=== PATIENT | female | born 1960 | race Caucasian/White ===

== ENCOUNTER → 2021-11-18 10:49 | Outpatient (CLI) | payer OTHER, SELFPAY ==
--- NOTE | 2021-11-18 10:52 | DI.MRI.S_ITS ---
PROCEDURE: MR HEAD/BRAIN WO/W CON INDICATIONS: MENINGIOMA TECHNIQUE: Noncontrast axial T1 spin echo, axial T2 fast spin echo, sagittal and axial FLAIR, coronal T2 fast spin echo, axial gradient echo, axial diffusion and ADC through the brain. After the administration of contrast, axial and coronal and sagittal 3D VIBE or T1 spin echo with fat saturation through the brain. COMPARISON: [facility], RG, MRI BRAIN W/WO CONTRAST, 08/24/2021, 14:02. FINDINGS: Image quality: Excellent. CSF Spaces: Basal cisterns are patent. No extra-axial fluid collections. Ventricles are normal in size and shape. Brain: There is an extra-axial mass again seen involving the right frontal region that measures up to 5 mm, as on series 13 image 114. This is not significantly changed compared to the prior examination, when measured in a similar fashion. No midline shift. The brainstem appears normal. Diffusion-weighted images demonstrate no acute ischemic insults. No chronic ischemic insults. Normal intravascular flow voids are present. Skull and face: Calvarial marrow is normal in signal. Orbits appear normal. Sinuses: Sinuses and mastoids appear clear. IMPRESSION: Stable meningioma until proven otherwise. Dictated by: Yariel Us M.D. on 11/21/2021 at 14:01 Approved by: Yariel Us M.D. on 11/21/2021 at 14:02
== END ==
LOC: MRI 10:51
PROVIDERS: PCP Physician Assistant; Referring Provider Psychiatry & Neurology Neurology; Visit Provider Psychiatry & Neurology Neurology
DX: D32.0 Benign neoplasm of cerebral meninges (principal)
CPT/HCPCS: 70553; A9579

== ENCOUNTER → 2023-02-14 13:45 | Outpatient (CLI) | payer OTHER, SELFPAY ==
--- NOTE | 2023-02-14 | DI.NM.S_ITS ---
PROCEDURE: NM EXERCISE TREADMILL NON NUC COMPARISON: None INDICATIONS: Dyspnea on exertion, palpitations, tachycardia FINDINGS: Rest ECG sinus rhythm. Wilfredo protocol 7:12, maximum heart rate 170 bpm (106% peak predicted), maximum blood pressure 182/80, 10.1 METS, FER -5%. Exercise ECG sinus tachycardia, no ST segment changes or arrhythmias. The patient did not complain of exercise-induced chest discomfort. IMPRESSION: Low risk study. No evidence of exercise-induced ischemia or arrhythmia. Normal hemodynamic response. Good exercise capacity. Dictated by: Hoda Bray D.O. on 02/14/2023 at 16:56 Approved by: Hoda Bray D.O. on 02/14/2023 at 16:59
--- NOTE | 2023-02-14 14:19 | DI.ECHO.S_ITS ---
[facility]---------+ [facility] +---------+ : : [address] : : : : [id number] : : : : Phone: [phone]+ Echocardiogram Report + + :Name: CHELITA COSME Study Date: 02/14/2023 Height: 65 in : :[facility] ReadingLocation: Weight: 185 lb : : Gender: Female BSA: 1.9 m2 : :: 1960 Age: 62 yrs BP: 113/79 mmHg: :Reason For Study: DYSPNEA : :Ordering Physician: TOSIN, : :DARRIAN Performed By: Daria Amos : :Referring: DARRIAN SHARMA : + + Interpretation Summary 1) Normal left ventricular thickness and size with low normal systolic function (EF 50-55%). 2) Normal right ventricular size and function. 3) No significant valvular abnormalities. 4) No prior Echo available for comparison. Procedure: A two-dimensional transthoracic echocardiogram with color flow and Doppler was performed. The study quality was technically adequate. There is no prior echocardiogram noted for this patient. The patient was in sinus rhythm with heart rates between 70-81 bpm during the exam. Left Ventricle: The left ventricle is normal in size and wall thickness. The ejection fraction is estimated to be 50-55%. There are no focal wall motion abnormalities. Diastolic parameters suggest a relaxation abnormality of the left ventricle, consistent with probable normal filling pressures. Right Ventricle: The right ventricle is normal in size and function. Atria: The left atrial size is normal. Right atrial size is normal. There is no Doppler evidence for an interatrial shunt. Mitral Valve: The mitral valve is normal in structure and function. There is no mitral regurgitation noted. Aortic Valve: The aortic valve is trileaflet. The aortic valve opens well. There is no aortic valve stenosis. No aortic regurgitation is present. Tricuspid Valve: The tricuspid valve is normal in structure and function. There is trace tricuspid regurgitation. Pulmonary artery pressures cannot be estimated because of the lack of a measurable TR jet velocity. Pulmonic Valve: The pulmonic valve leaflets are thin and pliable; valve motion is normal. There is no pulmonic valvular regurgitation. Great Vessels: The aortic root is normal size. The dimensions of the ascending aorta are normal. The IVC is of normal diameter and collapses greater than 50% with a sniff. This suggests a low right atrial pressure of 3 mm Hg. Pericardium/ Pleura There is no pericardial effusion. There is no pleural effusion. MMode/2D Measurements & Calculations LVIDd: 4.8 cm LVOT diam: 2.2 cm LVIDs: 3.7 cm Ao root diam: 3.1 cm FS: 23.3 % asc Aorta Diam: 2.7 cm EPSS: 0.63 cm Ao Arch Diam (Prox Trans): 2.4 cm IVSd: 0.72 cm LVPWd: 0.61 cm LV patel. diameter/BSA (cm/m^2): 2.5 LV sys. diameter/BSA (cm/m^2): 1.9 LA A2 area: 15.6 cm2 RA long axis: 4.8 cm LA A4 area: 14.5 cm2 RA area: 12.6 cm2 LA length (vol): 4.8 cm RA vol: 28.1 ml LA vol: 39.9 ml RA : 14.7 ml/m2 LA vol index: 20.9 ml/m2 IVC diam: 1.2 cm RVD1 (basal): 3.3 cm TAPSE: 1.6 cm Doppler Measurements & Calculations Ao V2 max: 107.3 cm/sec LVOT Max Librado: 82.2 cm/sec Ao V2 mean: 82.5 cm/sec LV V1 max P.7 mmHg Ao max P.6 mmHg LV V1 VTI: 16.3 cm Ao mean P.9 mmHg JONA(I,D): 2.7 cm2 Ao V2 VTI: 22.3 cm JONA(V,D): 2.8 cm2 sev ratio: 0.73 JONA indexed to BSA (cm^2/m^2): 1.4 MV E max librado: 55.9 cm/sec PA V2 max: 84.2 cm/sec MV A max librado: 61.9 cm/sec PA V2 mean: 61.6 cm/sec MV E/A: 0.90 PA mean P.6 mmHg Med Peak E' Librado: 5.4 cm/sec PA pr(Accel): 31.0 mmHg E/E' med: 10.3 Lat Peak E' Librado: 8.3 cm/sec E/E' lat: 6.7 E/e' average: 8.5 MV dec time: 0.17 sec SV(LVOT): 60.2 ml Reading Physician:04:22 PM
== END ==
LOC: ECHO 13:46
PROVIDERS: PCP Physician Assistant; Referring Provider Internal Medicine Cardiovascular Disease; Visit Provider Internal Medicine Cardiovascular Disease
DX: R06.09 Other forms of dyspnea (principal); R00.0 Tachycardia, unspecified; R00.2 Palpitations
CPT/HCPCS: 93017; 93306